=== PATIENT | male | born 1990 | race African-American/Black ===

== ENCOUNTER 2021-11-18 09:46 | Emergency (ER) | payer OTHER ==
[~2021-11-18] VITALS: Ht 185.4 cm; Wt 92.9 kg
[2021-11-18 10:45] VITALS: BP 146/92
[2021-11-18] MEDS ORDERED: HYDROcodone-ACET 5/325MG TAB PO ONE (11:00)
[2021-11-18] MEDS ORDERED: KETOROLAC TROMETH 60MG/2ML VIAL IM ONE (11:00)
[2021-11-18] MEDS ORDERED: IBUP800T27 PO (11:50)
[2021-11-18] MEDS ORDERED: BACL10TA PO (11:50)
== END 2021-11-18 12:01 | disposition home or self-care (01) ==
LOC: ER 09:46
DX: S16.1XXA Strain of muscle, fascia and tendon at neck level, initial encounter (principal); S39.012A Strain of muscle, fascia and tendon of lower back, initial encounter; X50.0XXA Overexertion from strenuous movement or load, initial encounter; Y93.89 Activity, other specified; Y92.89 Other specified places as the place of occurrence of the external cause; Y99.8 Other external cause status
CPT/HCPCS: 96372; 99283; J1885